=== PATIENT | female | born 1930 | race Hispanic/Latino ===

== ENCOUNTER → 2019-06-15 | Outpatient (CLI) | payer OTHER | END | disposition home or self-care (01) | LOC: OIH 11:02 | PROVIDERS: ATTEND Internal Medicine | DX: M47.22 Other spondylosis with radiculopathy, cervical region (principal); M47.26 Other spondylosis with radiculopathy, lumbar region; M25.78 Osteophyte, vertebrae; M41.87 Other forms of scoliosis, lumbosacral region; M43.8X6 Other specified deforming dorsopathies, lumbar region; M41.84 Other forms of scoliosis, thoracic region; M48.02 Spinal stenosis, cervical region | CPT/HCPCS: 72040; 72070; 72100 ==

== ENCOUNTER → 2019-11-17 | Outpatient (CLI) | payer OTHER | END | disposition home or self-care (01) | LOC: OIH 16:10 | PROVIDERS: ATTEND Internal Medicine | DX: M43.8X6 Other specified deforming dorsopathies, lumbar region (principal); M48.04 Spinal stenosis, thoracic region | CPT/HCPCS: 72070 ==